=== PATIENT | male | born 1980 | race Caucasian/White ===

== ENCOUNTER → 2025-01-11 11:37 | Outpatient (REF) | payer OTHER, SELFPAY | LOC: HWRAD 11:37 | PROVIDERS: ATTENDING PHYSICIAN Student in an Organized Health Care Education/Training Program; FAMILY PHYSICIAN Internal Medicine | DX: S42.141A Displaced fracture of glenoid cavity of scapula, right shoulder, initial encounter for closed fracture (principal); S42.151A Displaced fracture of neck of scapula, right shoulder, initial encounter for closed fracture | CPT/HCPCS: 73200 ==

== ENCOUNTER 2025-03-29 10:03 | Outpatient (RCR) | payer SELFPAY | END 2025-03-29 23:59 | disposition home or self-care (01) | LOC: RPT 10:03 | PROVIDERS: ATTENDING PHYSICIAN Student in an Organized Health Care Education/Training Program; FAMILY PHYSICIAN Internal Medicine | DX: S42.141D Displaced fracture of glenoid cavity of scapula, right shoulder, subsequent encounter for fracture with routine healing (principal); S42.151D Displaced fracture of neck of scapula, right shoulder, subsequent encounter for fracture with routine healing; Z73.6 Limitation of activities due to disability; M62.81 Muscle weakness (generalized); W19.XXXD Unspecified fall, subsequent encounter | CPT/HCPCS: 97010; 97110; 97140; 97161 ==

== ENCOUNTER 2025-04-12 10:16 | Outpatient (RCR) | payer SELFPAY | END 2025-04-12 23:59 | disposition home or self-care (01) | LOC: RPT 10:16 | PROVIDERS: ATTENDING PHYSICIAN Student in an Organized Health Care Education/Training Program; FAMILY PHYSICIAN Internal Medicine | DX: S42.141D Displaced fracture of glenoid cavity of scapula, right shoulder, subsequent encounter for fracture with routine healing (principal); S42.151D Displaced fracture of neck of scapula, right shoulder, subsequent encounter for fracture with routine healing; Z73.6 Limitation of activities due to disability; M62.81 Muscle weakness (generalized); W19.XXXD Unspecified fall, subsequent encounter | CPT/HCPCS: 97010; 97110; 97140 ==